=== PATIENT | male | born 1975 | race Caucasian/White ===

== ENCOUNTER 2021-02-16 09:34 | Emergency (ER) | payer OTHER, SELFPAY ==
[2021-02-16 09:40] VITALS: BP 145/85; PULSE 54; RESP 16; O2SAT 97; BMI 36.9
--- NOTE | 2021-02-16 09:52 | ED.GENADULT ---
HPI - General Adult General Chief complaint: General Medical Stated complaint: rectal bleeding Time Seen by Provider: 02/16/21 09:52 Source: patient Mode of arrival: ambulatory Limitations: no limitations History of Present Illness HPI narrative: patient had a history of hemorrhoids and was having blood when he has a bowel and cleans himself. Patient has irritation to the rectal area. Onset (ago): week(s) Severity: mild Quality: burning Pain Consistency: intermittent Exacerbating factors: other (bowel movement) Associated symptoms: denies other symptoms Related Data Previous Rx's Medication Instructions Recorded clotrimazole 1 % topical cream 1 appl TOPICAL BID 28 Days #90 g 02/16/21 (Lotrimin AF (clotrimazole)) Allergies Allergy/AdvReac Type Severity Reaction Status Date / Time No Known Allergies Allergy Unverified 12/18/19 15:41 Review of Systems Constitutional: Constitutional: Reports no additional constitutional complaints Eyes: Eyes: Reports no additional eye complaints ENT: Denies dizziness Cardiovascular: Cardiovascular: Reports no additional cardiovascular complaints Respiratory: Respiratory: Reports as per HPI Gastrointestinal: Gastrointestinal: Reports no additional gastrointestinal complaints Musculoskeletal: Musculoskeletal: Reports no additional musculoskeletal complaints Integumentary/Breasts: Skin/Breast: Denies rash Neurologic: Reports system reviewed and no additional complaints, except as documented, Denies dizziness and Denies Sensory deficit (Neuro) Psychiatric: Psychiatric: Denies anxiety [facility] Past Medical History Medical History High cholesterol HTN (hypertension) Social History Social History Advance Directives: No Physical Exam Vital Signs: Vital Signs: Last Vital Signs Pulse 54 02/16/21 09:40 Resp 16 02/16/21 09:40 BP 145/85 H 02/16/21 09:40 Pulse Ox 97 02/16/21 09:40 Body Mass Index 36.9 Const: General: healthy appearing Nutritional Appearance: average body habitus Orientation/consciousness: oriented to person and patient oriented x3 Limitations: no limitations HENMT: Head: Yes normal to inspection Ears: external ears normal General nose exam: Normal external nose present Mouth: Normal oral and palatal mucosa present and oropharynx normal Throat: Yes posterior oropharynx normal Eyes: General: appearance normal, both eyes and all related structures Neck: Other: supple Neck: Yes normal visual inspection Chest: Chest palpation & inspection: normal inspection of the chest Resp: Auscultation: clear to auscultation bilaterally Cardio: Jugular venous distension: no JVD Rate: regular rate Rhythm: regular rhythm Heart sounds: S1 normal heart sound present and S2 normal heart sound present GI: Inspection: Yes normal to inspection Palpation (GI): Soft to palpation, nontender and No hepatosplenomegaly present Auscultation: normal bowel sounds : Other: perirectal area with irritation consistent with fungus, no internal or external hemorrhoid. There is erythema and excoriation. Skin: General skin exam: no rashes or lesions noted Neuro: General: oriented to person and patient oriented x3 Cranial nerves: Yes CN's II-XII intact bilaterally Motor exam (neuro): 5/5 motor strength present throughout Sensory Exam: No Sensory deficit (Neuro) Extrem: General: Yes normal to inspection Psych: Appearance: grossly normal Discharge Plan Discharge Clinical Impression: Candidiasis of anus Patient Disposition: Home, Self-Care Instructions: Skin Yeast Infection (ED) Prescriptions: New clotrimazole [Lotrimin AF (clotrimazole)] 1 % cream 1 appl topical BID 28 Days Qty: 90 RF: 0 Referrals: David Clay MD [Primary Care Provider] - 1 week
[2021-02-16 10:12] LABS: Glucose, Whole Blood 95 mg/dL (60-115)
== END 2021-02-16 10:18 | disposition home or self-care (01) ==
PROVIDERS: Emergency Provider Emergency Medicine; PCP Internal Medicine
DX: B37.2 Candidiasis of skin and nail (principal); I10 Essential (primary) hypertension
CPT/HCPCS: 82947; 99283

== ENCOUNTER 2024-06-17 09:19 | Outpatient (AMB) | payer OTHER, SELFPAY ==
--- NOTE | 2024-06-17 09:26 | A.OFFVIS_ITS ---
Vital Signs 06/17/24 09:29 Height 5 ft 8 in Weight 250 lb BMI 38.0 BP 148/82 H Blood Pressure Location Rt brachial Position Sitting Pulse 72 Pulse Source Pulse Oximeter Pulse Oximetry (%) 98 Oxygen Delivery Method Room Air Intake Visit Reasons: Obstructive sleep apnea Hot Die Picker Required: No Allergies No Known Allergies Allergy (Unverified 06/17/24 09:27) Medication List - Last Reconciled 06/17/24 by Kylah Dominguez, SERVICE DESK ASSOCIATE albuterol sulfate 90 mcg/actuation (Ventolin HFA) inhalation clotrimazole 1% (Lotrimin AF (clotrimazole)) 1 appl topical BID 4 weeks fluticasone propionate 50 mcg/actuation intranasal lisinopril mg PO DAILY loratadine mg PO DAILY simvastatin mg PO DAILY HPI HPI Obstructive sleep apnea: Details: Jaycob is a pleasant 49 year old male, never smoker, with underlying ROSETTE, asthma, seasonal allergies, HTN, and HLD. He was referred by PCP for pulmonary evaluation for ROSETTE. He reports prior sleep study in 2018 which revealed ROSETTE, unknown severity. Unfortunately, never was contacted about results until recently therefore was never started on CPAP therapy. He continues with witnessed apneas, paroxsymal nocturnal dyspnea, loud snoring and daytime fatigue. EPWORTH score 13. He reports mother and sister with h/o ROSETTE. He also reports h/o asthma which is controlled with albuterol MDI, requiring use rarely. Today he denies any respiratory symptoms. COUNT INCLUDES THE [facility] Medical History High cholesterol HTN (hypertension) Review of Systems Const Denies chills, Denies excessive sweating, Denies fever(s), Denies headache(s) and Denies night sweats Eyes Denies dry eyes, Denies irritation and Denies itchy eyes ENT Reports Normal hearing present, Denies headache(s), Denies nasal congestion, Denies nasal discharge, Denies post nasal drip and Denies sore throat Card Denies chest pain, Denies chest pain at rest, Denies chest pain with activity, Denies claudication, Denies leg edema, Denies dyspnea, Denies dyspnea on exertion, Denies orthopnea and Reports paroxysmal nocturnal dyspnea Resp Denies chest congestion, Denies cough, Denies excessive phlegm production, Denies pain on inspiration, Denies pain with cough, Denies dyspnea, Denies dyspnea on exertion, Denies stridor and Denies wheezing Musc Denies myalgias Neuro Reports Normal hearing present and Denies headache(s) Endo Denies excessive sweating Dio/Lymph Denies lymphadenopathy Aller/Immun Denies itchy eyes, Denies seasonal rhinorrhea and Denies wheezing Physical Exam Vital Signs: Last Vital Signs Pulse 72 06/17/24 09:29 BP 148/82 H 06/17/24 09:29 Pulse Ox 98 06/17/24 09:29 Oxygen Delivery Method Room Air 06/17/24 09:29 BMI result Body Mass Index 38.0 Const General: cooperative, healthy appearing, comfortable, no acute distress, well developed and alert Nutritional Appearance: obese Orientation/consciousness: patient oriented x3 Limitations: no limitations HEENT Head: Yes normal to inspection, Yes normocephalic and Yes atraumatic Ears: hearing grossly normal bilaterally and external ears normal Eyes General: appearance normal, both eyes and all related structures Eyelids: Yes eyelids normal Sclerae: sclerae normal EOM: EOMs intact bilaterally Neck Neck: Yes normal visual inspection and Yes no lymphadenopathy Lymphatic: no lymphadenopathy noted Chest Chest palpation & inspection: normal inspection of the chest Resp Effort & Inspection: normal respiratory effort, able to speak in complete sentences, no audible wheezes, no cough, no stridor, not tachypneic, no tripod positioning and no use of accessory muscles Auscultation: clear to auscultation bilaterally Cardio Jugular venous distension: no JVD Rate: regular rate Rhythm: regular rhythm Skin Other: warm, dry General skin exam: no rashes or lesions noted Neuro General: patient oriented x3 Cranial nerves: Yes Normal hearing present Cognition (Neuro): normal cognition Gait exam (Neuro): Normal gait present Extrem General: Yes normal to inspection, Yes capillary refill normal, Yes no clubbing, cyanosis or edema and Yes no pedal edema Psych Appearance: grossly normal and well kempt Speech and movement: Normal speech and movement present and Clear speech present Affect: normal affect Attitude: cooperative Thought process: Normal thought process present Thought content: Normal thought content present Insight: Good insight present (Psych) Judgement: Good judgement present (Psych) Assessment & Plan Assessment & Plan (1) Witnessed episode of apnea: Code(s): R06.81 - Apnea, not elsewhere classified Category: Medical (2) Daytime somnolence: Code(s): R40.0 - Somnolence Category: Medical (3) Asthma: Code(s): J45.909 - Unspecified asthma, uncomplicated Category: Medical Plan Jaycob presents for pulmonary evaluation for symptoms suggestive of ROSETTE. Will send for home sleep study to further evaluate. At this time, he reports respiratory symptoms are well controlled. He is aware to call if respiratory symptoms change with the Spring approaching. All questions were answered and patient is agreement. Will follow up to review results or sooner if needed. Orders: Orders RT home sleep study Today R06.81 - Apnea, not elsewhere classified, R40.0 - Somnolence Coding Level of Care Code New Pt Level 3 (74894) Diagnoses Witnessed episode of apnea R06.81 Daytime somnolence R40.0 Asthma J45.909
[2024-06-17 09:29] VITALS: BP 148/82; PULSE 72; O2SAT 98; BMI 38.0
--- OUTSIDE RECORDS SUMMARY | 2024-06-17 10:05 | XMS_ITS | Clinical Summary ---
Author Organization [facility] Address [address] [place] [phone] Phone Care Team Providers Care Coverstitch Elastic Attacher Name Role Phone David Clay MD Primary Care Provider [phone] Allergies No known active allergies Medications ketotifen fumarate (ZADITOR) 0.035 % ophthalmic solution PLACE 1 DROP IN BOTH EYES EVERY 12 HOURS 3 Active fluticasone propionate (FLONASE) 50 mcg/actuation nasal spray Administer 2 sprays into each nostril 1 (one) time each day. 4 Active ketoconazole (NIZORAL) 2 % cream APPLY CREAM TO THE AFFECTED AREAS OF THE BOTTOM AND TOP OF FEET TWICE DAILY 4 Active loratadine (CLARITIN) 10 mg tablet Take 1 tablet (10 mg total) by mouth 1 (one) time each day. 90 tablet 5 Active lisinopriL (PRINIVIL,ZESTR IL) 20 mg tablet Take 1 tablet (20 mg total) by mouth 1 (one) time each day. 90 tablet 5 Active simvastatin (ZOCOR) 80 mg tablet Take 1 tablet (80 mg total) by mouth at bedtime. 90 tablet 1 5 Active albuterol HFA (Ventolin HFA) 90 mcg/actuation inhaler Inhale 2 puffs by mouth every 4 (four) hours if needed for wheezing or shortness of breath. 6.7 g 1 5 Active albuterol 2.5 mg /3 mL (0.083 %) nebulizer solution Take 3 mL (2.5 mg total) by nebulization 4 (four) times a day if needed for wheezing or shortness of breath. 75 mL Active Active Problems Problem Noted Date Diagnosed Date Type 2 diabetes mellitus wit hout complication, without long-term current use of insulin 05/19/2024 Helicobacter pylori gastritis 07/12/2023 Hepatic steatosis 07/11/2023 Seasonal allergies 07/11/2023 Bilateral inguinal hernia without obstruction or gangrene 01/22/2019 Prediabetes 10/14/2018 Obstructive sleep apnea 09/04/2017 Overview (02/19/2024): [facility] Home Polysomnogram: Date 08/29/2017; AHI 33, Unclassified apneas 0; Obstructive apneas 81; Central apneas 1; Mixed apneas 0; hypopneas 128; average oxygen saturation 95% (lowest 81% without saturations <88% for 5% or more of study) - Obstructive Sleep Apnea - severe; mostly hypopneas and obstructive apneas; without sleep related hypoventilation by 2018 home polysomnogram. Benign prostatic hyperplasia with lower urinary tract symptoms 04/17/2017 Hydrocele of testis 12/20/2016 Testicular cyst 12/20/2016 Varicocele 12/20/2016 Mixed hyperlipidemia 06/06/2016 Microscopic hematuria 01/30/2014 Impaired fasting glucose 01/27/2014 Overview (02/19/2024): 2010 and 2011 Severe obesity 01/27/2014 Overview (02/19/2024): BMI 35.86 on 05/05/13 Asthma 03/19/2006 Essential hypertension, benign 03/19/2006 Encounters Date Type Department Care Team Description 05/07/2024 10:00 AM EST Office Visit Adult Medicine [address] [phone] Fadumo Johnson PA Mild intermittent asthma without complication (Primary Dx); Essential hypertension, benign; Mixed hyperlipidemia; Prediabetes; Seasonal allergies; Obstructive sleep apnea; Throat pain; Throat tightness from Last 3 Months Immunizations Name Administration Dates Next Due Influenza trivalent, 0.5mL, preservative free (Fluarix; FluLaval; Fluzone) ages 6mo and older (Afluria) 3 years and older 01/30/2014,12/19/2010 Pneumococcal, Unspecified 12/09/2010 Td Tetanus diptheria (Tdvax) 7yo and older 12/05,07/31/2002 Td, Unspecified 07/31/2002 Tdap Tetanus diptheria acell ular pertussis (Boostrix; Adacel) 7yo and older 01/30/2014 Surgical History Surgery Date Site/Laterality Comments COLONOSCOPY 04/08/2015 PROCEDURE: HISTORICAL COLONOSCOPY; COMMENT: Colon polyps x 2, inflammatory polyp. Repeat in 10 years Medical History Medical History Date Comments Essential hypertension, benign 03/19/2006 D X:Essential hypertension, benign Unspecified asthma(493.90) 03/19/2006 DX:Un specified asthma(493.90) Severe obesity (CMS/HCC) 01/27/2014 DX:Anju re obesity ([facility]); COMMENT: BMI 35.86 on 05/05/13 Hyperlipidemia 03/19/2006 DX:Hyperlipidemi a Impaired fasting glucose 01/27/2014 DX:Impa ired fasting glucose; COMMENT: 2010 and 2011 Family hx colonic polyps 09/11/2014 DX:Fami ly hx colonic polyps Family History Medical History Relation Name Comments Diabetes Father hyperlipidemia, htn, kidney cancer Diabetes Mother Stroke Paternal Grandmother Relation Name Status Comments Brother 1 Alive Brother 2 Alive Daughter 1 Alive Daughter 2 Alive Daughter 3 Alive Father Alive diabetes Mother Alive hypertension, h ypercholesterolemia Paternal Grandmother Sister 1 Alive Sister 2 Alive Son Alive Social History Tobacco Use Types Packs/Day Years Used Date Smoking Tobacco: Never Smokeless Tobacco: Never Tobacco Cessation:Counseling Given: Not Answered Alcohol Use Standard Drinks/Week Comments Yes 0 (1 standard drink = 0.6 oz pur e alcohol) Sex and Gender Information Value Date Recorded Sex Assigned at Not on file Legal Sex Male 9:50 AM EST Gender Identity Not on file Sexual Orientation Not on file Obstetrics History Last Filed Vital Signs Vital Sign Reading Time Taken Comments Blood Pressure 132/70 05/07/2024 10:09 AM EST Pulse 78 05/07/2024 10:09 AM EST Temperature 36.1 ??C (97 ??F) 05/07/2024 10:09 AM EST Respiratory Rate - - Oxygen Saturation 96% 05/07/2024 10:09 AM EST Inhaled Oxygen Concentration - - Weight 114 kg (251 lb 11.2 oz) 05/07/2024 10:09 AM EST Height 172.7 cm (5' 7.99 ) 05/07/2024 10:09 AM Kamaljit Body Mass Index 38.28 05/07/2024 10:09 AM EST Plan of Treatment Upcoming Encounters Date Type Department Care Team (Late st Contact Info) Description 11/17/2024 9:45 AM EDT Office Visit Adult Medicine [facility] [address] [place] [phone] David Clay MD [address] [place] [phone] Health Maintenance Due Date Last Done Comments Diabetes: Annual Foot Exam 1983 Diabetes: Annual Retina Eye Exam 1983 Hepatitis A Vaccines (1 of 2 - Risk 2-dose series) 1992 Hepatitis B Vaccines (1 of 3 - 19+ 3-dose series) 1992 Pneumococcal Vaccine: 50+ Years (1 of 2 - PCV) 1992 12/09/2010 Pneumococcal Vaccine: Pediatrics (0 to 5 Years) and At-Risk Patients (6 to 64 Years) (2 of 2 - PPSV23) 02/13/2011 12/19/2010, 12/09/2010 Depression Screening 03/11/2022 HIV Screening 03/11/2022 Social Influencers of Health Screening 03/11/2022 Zoster Vaccines (1 of 2) 2023 COVID-19 Vaccine (3 - 2023- season) 2023 09/08/2020, 08/18/2020 Influenza Vaccine (#1) 2023 01/30/2014, 2010 DTaP,Tdap,and Td Vaccines (5 - Td or Tdap) 01/31/2024 01/30/2014, 12/05/2006, 07/31/2002, Additional history exists Diabetes: Annual Urine Albumin-Creatinine Ratio (uACR) 05/20/2024 01/28/2019 Diabetes: Blood Sugar Control Test (HGBA1C) 11/12/2024 2024, 07/12/2023 Diabetes: Annual GFR (Glomerular Filtration Rate) 2025 2024, 07/12/2023 Hypertension/CHF/CAD Annual BMP Blood Test 2025 2024, 07/12/2023 Colorectal Cancer Screening: Colonoscopy 11/28/2026 11/28/2021 Cholesterol Screening (Lipid Panel) 2029 2024, 07/12/2023 Hepatitis C Screening Completed 07/12/2023 HIB Vaccines Aged Out No longer eligi ble based on patient's age to complete this topic HPV Vaccines Aged Out No longer eligi ble based on patient's age to complete this topic IPV Vaccines Aged Out No longer eligi ble based on patient's age to complete this topic MMR Vaccines Aged Out No longer eligi ble based on patient's age to complete this topic Meningococcal ACWY Vaccine Aged Out N o longer eligible based on patient's age to complete this topic Meningococcal B Vacine Aged Out No lo nger eligible based on patient's age to complete this topic RSV Immunization Patients Under 20 months Aged Out No longer eligible based on patient's age to complete this topic Varicella Vaccines Aged Out No longer eligible based on patient's age to complete this topic Procedures Procedure Name Priority Date/Time Associated Diagnosis Comments BASIC METABOLIC PANEL Routine 2024 7:39 AM EST Essential hypertension, benign LIPID PANEL WITH REFLEX TO DIRECT LDL Routine 2024 7:39 AM EST Mixed hyperlipidemia HEMOGLOBIN A1C Routine 2024 7:39 AM EST Prediabetes HEPATITIS C SCREENING Routine 07/12/2023 COLONOSCOPY Routine 11/28/2021 URINE ALBUMIN CREATININE RATIO Routine 01/28/2019 from Last 3 Months or Most Recently Relevant to Health Maintenance Results * (ABNORMAL) Lipid panel with reflex to direct LDL (2024 7:39 AM EST) [facility] Signature Cholesterol 183 0 - 200 mg/dL LAB CHEMISTRY METHOD 2024 10:23 AM [facility] Triglycerides 163(H) 0 - 150 mg/dL LAB CHEMISTRY METHOD 2024 10:23 AM [facility] HDL 49 >=40 mg/dL LAB CHEMISTRY METHOD 2024 10:23 AM [facility] LDL Calculated 101(H) 0 - 100 mg/dL LAB CHEMISTRY METHOD 2024 10:23 AM EST [facility] VLDL Cholesterol Marlon 32.6 mg/dL LAB CHEMISTRY METHOD 2024 10:23 AM [facility] Non HDL Chol. (LDL+VLDL) 134 <145 mg/dL LAB CHEMISTRY METHOD 2024 10:23 AM [facility] Chol/HDL Ratio 3.7 0.0 - 4.4 LAB CHEMISTRY METHOD 2024 10:23 AM [facility] Blood Venous blood specimen / Unknown Venipuncture / Unknown 2024 7:39 AM EST 2024 7:39 AM EST Fadumo MENJIVAR LAB BLOOD ORDERABLES Fi nal Result [facility] [address] [place] [address], * (ABNORMAL) Hemoglobin A1c (2024 7:39 AM EST) Hemoglobin A1C 6.5(H) <6.5 % LAB CHEMISTRY METHOD 2024 12:35 PM [facility] Mean Bld Glu Estim. 140 mg/dL LAB CHEMISTRY METHOD 2024 12:35 PM [facility] Blood Venous blood specimen / Unknown Venipuncture / Unknown 2024 7:39 AM EST 2024 7:39 AM EST Fadumo MENJIVAR LAB BLOOD ORDERABLES Fi nal Result [facility] [address] [place] [address], [place] [phone] * (ABNORMAL) Basic metabolic panel (2024 7:39 AM EST) Sodium 138 133 - 145 mmol/L LAB CHEMISTRY METHOD 2024 10:32 AM [facility] Potassium 4.6 3.5 - 5.5 mmol/L LAB CHEMISTRY METHOD 2024 10:32 AM [facility] Chloride 106 96 - 110 mmol/L LAB CHEMISTRY METHOD 2024 10:32 AM [facility] CO2 30 21 - 32 mmol/L LAB CHEMISTRY METHOD 2024 10:32 AM [facility] Anion Gap 2(L) 3 - 11 LAB CHEMISTRY METHOD 2024 10:32 AM [facility] Glucose 114(H) 70 - 100 mg/dL LAB CHEMISTRY METHOD 2024 10:32 AM [facility] BUN 18 5 - 25 mg/dL LAB CHEMISTRY METHOD 2024 10:32 AM [facility] Creatinine 1.33(H) 0.70 - 1.30 mg/dL LAB CHEMISTRY METHOD 2024 10:32 AM [facility] eGFR 65 >=60 mL/min/1. 73m2 LAB CHEMISTRY METHOD 2024 10:32 AM [facility] Comment:Calculation based on the??Chronic Kidney Disease Epidemiology Collaboration (CKD-EPI) equation refit??without adjustment for race. BUN/Creatinine Ratio 13.5 LAB CHEMISTRY METHOD 2024 10:32 AM EST [facility] Calcium 9.9 8.5 - 10.5 mg/dL LAB CHEMISTRY METHOD 2024 10:32 AM EST [facility] Blood Venous blood specimen / Unknown Venipuncture / Unknown 2024 7:39 AM EST 2024 7:39 AM EST Fadumo MENJIVAR LAB BLOOD ORDERABLES Fi nal Result [facility] [address] [place] [address], * Hepatitis C Screening (07/12/2023) Pathologist [facility] Hepatitis C Screening abstracted Historical Provider HEALTH MAINTENANCE Final Result * Colonoscopy (11/28/2021) Pathologist [facility] Colonoscopy no interpretation , abstracted Anatomical Region Laterality Modality Other Historical Provider HEALTH MAINTENANCE Final Result * Urine Albumin Creatinine Ratio (01/28/2019) Pathologist [facility] Urine Albumin Creatinine Ratio abstracted Historical Provider HEALTH MAINTENANCE Final Result from Last 3 Months or Most Recently Relevant to Health Maintenance Insurance [facility] [facility] Care Teams Coverstitch Elastic Attacher Relationship Specialty Start Date End Date David Clay MD [address] [place] [id number] PCP - General Internal Medicine 01/13/15
== END 2024-06-17 09:51 | disposition home or self-care (01) ==
LOC: HO.HPSW 09:19
PROVIDERS: PCP Internal Medicine; Referring Provider Internal Medicine; Visit Provider Nurse Practitioner Family
DX: R06.81 Apnea, not elsewhere classified (principal); R40.0 Somnolence; J45.909 Unspecified asthma, uncomplicated
CPT/HCPCS: 99203

== ENCOUNTER → 2024-06-17 09:19 | Outpatient (BNVA) | payer OTHER, SELFPAY | PROVIDERS: PCP Internal Medicine; Referring Provider Internal Medicine; Visit Provider Nurse Practitioner Family | DX: G47.33 Obstructive sleep apnea (adult) (pediatric) (principal); J45.909 Unspecified asthma, uncomplicated; R40.0 Somnolence | CPT/HCPCS: 99202 ==

== ENCOUNTER → 2024-08-14 14:03 | Outpatient (REF) | payer OTHER, SELFPAY ==
--- OUTSIDE RECORDS SUMMARY | 2024-08-14 14:46 | XMS_ITS | Encounter Summary ---
Author Organization [facility] Address [address] [place] [address] Care Team Providers Care Skelp Processor Name Role Phone David Clay MD Primary Care Provider [phone] Reason for Visit * Reason Comments E-prescribe Rx Request Encounter Details Date Type Department Care Team Description 08/16/2023 Refill [facility] Medical [facility] [address] [place] [phone] Yifan Haider DPM E-prescribe Rx Request Social History Tobacco Use Types Packs/Day Years Used Date Smoking Tobacco: Never Smokeless Tobacco: Never Alcohol Use Standard Drinks/Week Comments Yes 0 (1 standard drink = 0.6 oz pur e alcohol) 7 drinks per week Sex Assigned at Date Recorded Not on file documented as of this encounter Plan of Treatment Not on file documented as of this encounter Visit Diagnoses Not on filedocumented in this encounter Care Teams Skelp Processor Relationship Specialty Start Date End Date David Clay MD [address] [place] [address] [phone] PCP - General Internal Medicine 01/13/15 documented as of this encounter
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
--- OUTSIDE RECORDS SUMMARY | 2024-08-14 14:46 | XMS_ITS | Encounter Summary ---
Author Organization [facility] Address [address] [place] [address] Care Team Providers Care Construction Plumber Name Role Phone David [place] MD Primary Care Provider [phone] Encounter Details Date Type Department Care Team Description 10/24/2017 Telephone Adult Medicine [address] [address] Venu Varghese MD Social History Tobacco Use Types Packs/Day Years Used Date Smoking Tobacco: Never Smokeless Tobacco: Never Alcohol Use Standard Drinks/Week Comments Yes 0 (1 standard drink = 0.6 oz pur e alcohol) 7 drinks per week Sex Assigned at Date Recorded Not on file documented as of this encounter Miscellaneous Notes * Telephone Encounter - Sera Hensley C.M.A. - 10/24/2017 12:56 PM EDT Notes requested. * Telephone Encounter - Venu Varghese MD - 10/24/2017 8:43 AM EDT Please nupur urology records from Dr. Garcia. documented in this encounter Plan of Treatment Not on file documented as of this encounter Visit Diagnoses Not on filedocumented in this encounter Care Teams Construction Plumber Relationship Specialty Start Date End Date David [place] MD [address] [place] [address] PCP - General Internal Medicine 01/13/15 documented as of this encounter
--- OUTSIDE RECORDS SUMMARY | 2024-08-14 14:46 | XMS_ITS | Encounter Summary ---
Author Organization [facility] Address [address] [place] [address] Care Team Providers Care Skein Washer Name Role Phone David [place] MD Primary Care Provider [phone] Encounter Details Date Type Department Care Team Description 11/04/2020 Head Girls Golf Coach Report Medical Records [address] [place] [address] Rosie Sheppard Social History Tobacco Use Types Packs/Day Years [...] on filedocumented in this encounter Care Teams Skein Washer Relationship Specialty Start Date End Date David [place] MD [address] [place] [address] PCP - General Internal Medicine 01/13/15 documented as of this encounter
--- OUTSIDE RECORDS SUMMARY | 2024-08-14 14:46 | XMS_ITS | Encounter Summary ---
Author Organization [facility] Address [address] [place] [address] Care Team Providers Care Shop Estimator Name Role Phone David Clay MD Primary Care Provider [phone] Reason for Visit * Reason Onset Date Comments Medication 11/14/2021 Encounter Details Date Type Department Care Team Description 11/14/2021 Refill Gastroenterology - [address] [phone] Shawna Doe MD [address] [place] [address] Medication Social History Tobacco Use Types Packs/Day Years [...] on filedocumented in this encounter Care Teams Shop Estimator Relationship Specialty Start Date End Date David Clay MD [address] [place] [address] PCP - General Internal Medicine 01/13/15 documented as of this encounter
--- OUTSIDE RECORDS SUMMARY | 2024-08-14 14:46 | XMS_ITS | Encounter Summary ---
Author Organization [facility] Address [address] [place] [address] Care Team Providers Care Commercial Sales Director Name Role Phone David [place] MD Primary Care Provider [phone] Reason for Visit * Reason Comments E-prescribe Rx Request Encounter Details Date Type Department Care Team Description 02/14/2021 Refill Gastroenterology - [address] [phone] Jerel To PA-C E-prescribe Rx Request Social History Tobacco Use Types Packs/Day Years Used Date Smoking Tobacco: Never Smokeless Tobacco: Never Alcohol Use Standard Drinks/Week Comments Yes 0 (1 standard drink = 0.6 oz pur e alcohol) 7 drinks per week Sex Assigned at Date Recorded Not on file COVID-19 Exposure Response Date Recorded In the last month, have you been in contact with someone who was confirmed or suspected to have Coronavirus / COVID-19? No / Unsure 01/27/2021 10:35 AM EDT documented as of this encounter Plan of Treatment Not on file documented as of this encounter Visit Diagnoses Not on filedocumented in this encounter Care Teams Commercial Sales Director Relationship Specialty Start Date End Date David [place] MD [address] [place] [address] PCP - General Internal Medicine 01/13/15 documented as of this encounter
--- OUTSIDE RECORDS SUMMARY | 2024-08-14 14:46 | XMS_ITS | Encounter Summary ---
Author Organization [facility] Address [address] [place] [address] Care Team Providers Care Geosciences Associate Professor Name Role Phone David [place] MD Primary Care Provider [phone] Reason for Visit * Reason Onset Date Comments Medication 04/12/2021 Encounter Details Date Type Department Care Team Description 04/12/2021 Refill Gastroenterology - [place] [address] [phone] Clinton Cortes PA-C [address] [address] Medication Social History Tobacco Use Types Packs/Day [...] on filedocumented in this encounter Care Teams Geosciences Associate Professor Relationship Specialty Start Date End Date David Clay MD [address] [place] [phone] PCP - General Internal Medicine 01/13/15 documented as of this encounter
--- OUTSIDE RECORDS SUMMARY | 2024-08-14 14:46 | XMS_ITS | Encounter Summary ---
Author Organization [facility] Address [address] [place] [address] Care Team Providers Care Carbon Sequestration Plant Engineer Name Role Phone David Clay MD Primary Care Provider [phone] Encounter Details Date Type Department Care Team Description 08/05/2020 Coroner Technician Report Medical Records [address] [place] [address] Rosie Sheppard Social History Tobacco Use Types [...] on filedocumented in this encounter Care Teams Carbon Sequestration Plant Engineer Relationship Specialty Start Date End Date David Clay MD [address] [place] [address] PCP - General Internal Medicine 01/13/15 documented as of this encounter
--- OUTSIDE RECORDS SUMMARY | 2024-08-14 14:46 | XMS_ITS | Encounter Summary ---
Author Organization [facility] Address [address] [place] [address] Care Team Providers Care Delivery Sales Worker Name Role Phone David Clay MD Primary Care Provider [phone] Encounter Details Date Type Department Care Team Description 10/14/2018 Telephone Adult Medicine [address] [phone] David Clay MD [address] [place] [address] [phone] Social History Tobacco Use Types Packs/Day Years [...] on filedocumented in this encounter Care Teams Delivery Sales Worker Relationship Specialty Start Date End Date David Clay MD [address] [place] [address] PCP - General Internal Medicine 01/13/15 documented as of this encounter
--- OUTSIDE RECORDS SUMMARY | 2024-08-14 14:46 | XMS_ITS | Encounter Summary ---
Author Organization [facility] Address [address] [place] [address] Care Team Providers Care Appliance Assembler Name Role Phone David Clay MD Primary Care Provider [phone] Reason for Visit * Reason Onset Date Comments medication problems 08/06/2018 Encounter Details Date Type Department Care Team Description 08/06/2018 Telephone Adult Medicine [address] [phone] David Clay MD [address] [place] [address] [phone] medication problems Social History Tobacco Use Types Packs/Day Years Used Date Smoking Tobacco: Never Smokeless Tobacco: Never Alcohol Use Standard Drinks/Week Comments Yes 0 (1 standard drink = 0.6 oz pur e alcohol) 7 drinks per week Sex Assigned at Date Recorded Not on file documented as of this encounter Miscellaneous Notes * Telephone Encounter - Sophie Cali - 08/19/2018 1:13 PM EDT Patient is calling to see the status on * Telephone Encounter - Jennie Knott PA-C - 08/06/2018 1:09 PM EDT Prilosec has been discontinued and patient was started on Zantac. * Telephone Encounter - Alexandria Torres M.A. - 08/06/2018 9:26 AM EDT Pharmacy advising possible drug interaction between Omeprazole and Cardura please advise * Telephone Encounter - Yeni Sawyer - 08/06/2018 9:24 AM EDT Who is calling? Spouse: Name: Ramya Name of the medication omeprazole (PRILOSEC OTC) 20 MG tablet and doxazosin (CARDURA) 1 MG tablet What is the specific problem or interaction? Per pharmacist drug interaction between 2 medications If the patient is having a problem with taking the med - how long has the problem been going on? N/A documented in this encounter Plan of Treatment Not on file documented as of this encounter Visit Diagnoses Not on filedocumented in this encounter Care Teams Appliance Assembler Relationship Specialty Start Date End Date David Clay MD [address] [place] [address] PCP - General Internal Medicine 01/13/15 documented as of this encounter
--- OUTSIDE RECORDS SUMMARY | 2024-08-14 14:46 | XMS_ITS | Clinical Summary ---
Author Organization [facility] Address [address] [place] [phone] Phone Care Team Providers Care Promotional Marketing Analyst Name Role Phone David Clay MD Primary Care Provider [phone] Allergies No known active allergies Medications ketotifen [...] complication, without long-term current use of insulin ([facility] V24, [facility] V28) 05/19/2024 Helicobacter pylori gastritis 07/12/2023 Hepatic steatosis 07/11/2023 Seasonal allergies 07/11/2023 Bilateral inguinal hernia without obstruction or gangrene 01/22/2019 Prediabetes 10/14/2018 Obstructive sleep apnea 09/04/2017 Overview (02/19/2024): [facility] Home Polysomnogram: Date 08/29/2017; AHI 33, Unclassified [...] Overview (02/19/2024): 2010 and 2011 Severe obesity ([facility] V24, [facility] V28) 2013 Overview (02/19/2024): BMI 35.86 on 05/05/13 Asthma 03/19/2006 Essential hypertension, benign 03/19/2006 Immunizations Name Administration Dates Next Due Influenza [...] asthma(493.90) 03/19/2006 DX:Un specified asthma(493.90) Severe obesity (CMS/HCC V24, CMS/HCC V28) 01/27/2014 DX:Severe obesity (HCC); COM MENT: BMI 35.86 on 05/05/13 Hyperlipidemia 03/19/2006 DX:Hyperlipidemi [...] cm (5' 7.99 ) 05/07/2024 10:[address] Body Mass Index 38.28 05/07/2024 10:09 AM EST Plan of Treatment Upcoming Encounters Date Type Department Care Team (Late st Contact Info) Description 11/17/2024 9:45 AM EDT Office Visit Adult Medicine [facility] [address] [place] [phone] David Clay MD [address] [place] [phone] Health Maintenance Due Date Last Done Comments Diabetes: Annual Foot Exam 1983 Diabetes: Annual Retina Eye Exam 1983 Hepatitis B Vaccines (1 of 3 - [...] Vaccines (1 of 2) 2023 COVID-19 Vaccine ( season) 2023 09/08/2020, 08/18/2020 DTaP,Tdap,and Td Vaccines (5 - Td or Tdap) 01/31/2024 01/30/2014, 12/05/2006, 07/31/2002, Additional history exists Diabetes: Annual Urine Albumin-Creatinine Ratio (uACR) 05/20/2024 01/28/2019 Diabetes: Blood Sugar Control Test (HGBA1C) 11/12/2024 2024, 07/12/2023 Influenza Vaccine (Season Ended) 2024 01/30/2014, 12/19/2010 Diabetes: Annual GFR (Glomerular Filtration Rate) 2025 [...] on patient's age to complete this topic Hepatitis A Vaccines Aged Out No long er eligible based on patient's age to complete this topic IPV Vaccines Aged Out No longer eligi ble based on patient's age to complete this topic MMR Vaccines Aged Out No longer eligi ble based on patient's age to complete this topic Meningococcal ACWY Vaccine Aged Out N o longer eligible based on patient's age to complete this topic Meningococcal B Vaccine Aged Out No l onger eligible based on patient's age to complete this topic RSV Immunization Patients Under 20 months Aged Out No longer eligible based on patient's age to complete this topic Varicella Vaccines Aged Out No longer eligible based on patient's age to complete this topic Procedures Procedure Name Priority Date/Time Associated Diagnosis Comments BASIC METABOLIC PANEL Routine 2024 7:39 AM EST Essential hypertension, benign HEMOGLOBIN A1C Routine 2024 7:39 AM EST Prediabetes LIPID PANEL WITH REFLEX TO DIRECT LDL Routine 2024 7:39 AM EST Mixed hyperlipidemia HEPATITIS C SCREENING Routine 07/12/2023 COLONOSCOPY Routine 11/28/2021 URINE ALBUMIN CREATININE RATIO Routine 01/28/2019 from Last 3 Months or Most Recently Relevant to Health Maintenance Results * (ABNORMAL) Lipid panel with reflex to direct LDL (2024 7:39 AM EST) Cholesterol 183 0 - 200 mg/dL LAB CHEMISTRY METHOD 2024 10:23 AM EST [facility] Triglycerides 163(H) 0 - 150 mg/dL LAB CHEMISTRY METHOD 2024 10:23 AM EST [facility] HDL 49 >=40 mg/dL LAB CHEMISTRY METHOD 2024 10:23 AM EST [facility] LDL Calculated 101(H) 0 - 100 mg/dL LAB CHEMISTRY METHOD 2024 10:[address] [facility] VLDL Cholesterol Marlon 32.6 mg/dL LAB CHEMISTRY METHOD 2024 10:[address] [facility] Non HDL Chol. (LDL+VLDL) 134 <145 mg/dL LAB CHEMISTRY METHOD 2024 10:23 AM EST [facility] Chol/HDL Ratio 3.7 0.0 - 4.4 LAB CHEMISTRY METHOD 2024 10:[address] [facility] Blood Venous blood specimen / Unknown Venipuncture / Unknown 2024 7:39 AM EST 2024 7:39 AM EST [facility] LAB BLOOD ORDERABLES Fi nal Result Performing Organization Address City/[facility]/ZIP Co de Phone Number [facility] [address] [place] [address], * (ABNORMAL) Hemoglobin A1c (2024 7:39 AM EST) Hemoglobin A1C 6.5(H) <6.5 % LAB CHEMISTRY METHOD 2024 12:35 PM EST [facility] Mean Bld Glu Estim. 140 mg/dL LAB CHEMISTRY METHOD 2024 12:35 PM EST [facility] Blood Venous blood specimen / Unknown Venipuncture / Unknown 2024 7:39 AM EST 2024 7:39 AM EST [facility] LAB BLOOD ORDERABLES Fi nal Result [facility] [address] [place] [address], [place] [phone] * (ABNORMAL) Basic metabolic panel (2024 7:39 AM EST) Sodium 138 133 - 145 mmol/L LAB CHEMISTRY METHOD 2024 10:[address] [facility] Potassium 4.6 3.5 - 5.5 mmol/L LAB CHEMISTRY METHOD 2024 10:[address] [facility] Chloride 106 96 - 110 mmol/L LAB CHEMISTRY METHOD 2024 10:[address] [facility] CO2 30 21 - 32 mmol/L LAB CHEMISTRY METHOD 2024 10:[address] [facility] Anion Gap 2(L) 3 - 11 LAB CHEMISTRY METHOD 2024 10:[address] [facility] Glucose 114(H) 70 - 100 mg/dL LAB CHEMISTRY METHOD 2024 10:[address] [facility] BUN 18 5 - 25 mg/dL LAB CHEMISTRY METHOD 2024 10:[address] [facility] Creatinine 1.33(H) 0.70 - 1.30 mg/dL LAB CHEMISTRY METHOD 2024 10:[address] [facility] eGFR 65 >=60 mL/min/1. 73m2 LAB CHEMISTRY METHOD 2024 10:[address] [facility] Comment:Calculation based on the??Chronic Kidney Disease Epidemiology Collaboration (CKD-EPI) equation refit??without adjustment for race. BUN/Creatinine Ratio 13.5 LAB CHEMISTRY METHOD 2024 10:[address] [facility] Calcium 9.9 8.5 - 10.5 mg/dL LAB CHEMISTRY METHOD 2024 10:[address] [facility] Blood Venous blood specimen / Unknown Venipuncture / Unknown 2024 7:39 AM EST 2024 7:39 AM EST [facility] LAB BLOOD ORDERABLES Fi nal Result [facility] [address] [place] [address], [place] [phone] * Hepatitis C Screening (07/12/2023) Hepatitis C Screening abstracted Historical Provider HEALTH MAINTENANCE Final Result * Colonoscopy (11/28/2021) Colonoscopy no interpretation , abstracted Anatomical Region Laterality Modality Other Historical Provider HEALTH MAINTENANCE Final Result * Urine Albumin Creatinine Ratio (01/28/2019) Urine Albumin Creatinine Ratio abstracted Historical Provider HEALTH MAINTENANCE Final Result from Last 3 Months or Most Recently Relevant to Health Maintenance Insurance [facility] [employer] Care Teams Promotional Marketing Analyst Relationship Specialty Start Date End Date David Clay MD [address] [place] [address] PCP - General Internal Medicine 01/13/15
--- OUTSIDE RECORDS SUMMARY | 2024-08-14 14:46 | XMS_ITS | Encounter Summary ---
Author Organization [facility] Address [address] [place] [address] Care Team Providers Care Sales Ledger Clerk Name Role Phone David [place] MD Primary Care Provider [phone] Encounter Details Date Type Department Care Team Description 09/04/2017 Orders Only Medical Records [address] [place] [phone] Jennie Ortiz PA Social History Tobacco Use Types Packs/Day Years Used Date Smoking Tobacco: Never Smokeless Tobacco: Never Alcohol Use Standard Drinks/Week Comments Yes 0 (1 standard drink = 0.6 oz pur e alcohol) 7 drinks per week Sex Assigned at Date Recorded Not on file documented as of this encounter Plan of Treatment Not on file documented as of this encounter Procedures Procedure Name Priority Date/Time Associated Diagnosis Comments OUTSIDE SLEEP STUDY Routine 08/29/2017 documented in this encounter Results * OUTSIDE SLEEP STUDY (08/29/2017) Jennie [facility] PULMONOLOGY documented in this encounter Visit Diagnoses Not on filedocumented in this encounter Care Teams Sales Ledger Clerk Relationship Specialty Start Date End Date David Clay MD [address] [place] [address] PCP - General Internal Medicine 01/13/15 documented as of this encounter
--- OUTSIDE RECORDS SUMMARY | 2024-08-14 14:46 | XMS_ITS | Clinical Summary ---
Author Organization [facility] Address [address] [place] [address] Care Team Providers Care Cash Control Specialist Name Role Phone David Clay MD Primary Care Provider [phone] Allergies No known active allergies Medications Medication Sig Dispensed Refills Start Date End Date Status ketotifen 0.025 % ophthalmic solution PLACE 1 DROP IN BOTH EYES EVERY 12 HOURS 5 mL 0 07/27/2022 Active magnesium hydroxide (Milk of Magnesia) 400 MG/5ML suspensionIndicatio ns:Constipation, unspecified constipation type Take 5 mL by mouth daily as needed for Constipation for up to 10 days. 40 mL 0 07/11/2023 Active loratadine (CLARITIN) 10 MG tablet Take 1 Tablet by mouth daily. 90 Tablet 1 07/11/2023 Active fluticasone 50 MCG/ACT nasal spray SPRAY 2 SPRAYS INTO EACH NOSTRIL EVERY DAY 16 mL 1 07/11/2023 Active omeprazole (PRILOSEC) 40 MG capsuleIndications: Epigastric pain Take 1 Capsule by mouth daily for 90 days. 90 Capsule 0 07/11/2023 Active Ventolin HFA 108 (90 Base) MCG/ACT Aero Soln INHALE 2 PUFFS INTO THE LUNGS EVERY 4 HOURS NEEDED FOR COUGH OR WHEEZING. 18 g 1 08/16/2023 Active ketoconazole (NIZORAL) 2 % cream APPLY CREAM TO THE AFFECTED AREAS OF THE BOTTOM AND TOP OF FEET TWICE DAILY 60 g 1 08/21/2023 Active albuterol (PROVENTIL) (2.5 MG/3ML) 0.083% nebulizer solution Take 1 Vial by nebulization every 4 hours as needed for Wheezing. 375 mL 1 08/21/2023 Active lisinopril (PRINIVIL,ZESTRIL) 20 MG tablet TAKE 1 TABLET BY MOUTH EVERY DAY 30 Tablet 0 12/17/2023 Active simvastatin (ZOCOR) 80 MG tablet Take 1 Tablet by mouth at bedtime. 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 Testicular cyst 12/20/2016 Mixed hyperlipidemia 06/06/2016 Family hx colonic polyps 09/11/2014 Microscopic hematuria 01/30/2014 Severe obesity 01/27/2014 Overview: BMI 35.86 on 05/05/13 Impaired fasting glucose 01/27/2014 Overview: 2010 and 2011 Essential hypertension, benign 6 Asthma 03/19/2006 Resolved Problems Problem Noted Date Resolved Date Hyperlipidemia 03/19/2006 06/06/2016 Immunizations Name Administration Dates Next Due COVID-19 (Pfizer) 09/08/2020,08/18/2020 Influenza (> 6 Months) 01/30/2014,12/19/2010 Pneumovax Adult(PT Reported) 12/09/2010 TD (STATE SUPPLIED FOR ADULTS AND CHILDREN) 07/2006,07/31/2002 TETANUS/DIPTHERIA (ADULT) 07/31/2002 Tdap 01/30/2014 Family History Medical History Relation Name Comments [...] Assigned at Date Recorded Not on file Last Filed Vital Signs Vital Sign Reading Time Taken Comments Blood Pressure 132/72 07/11/2023 11:03 AM EDT Pulse 89 07/11/2023 11:03 AM EDT Temperature 36.6 ??C (97.9 ??F) 07/11/2023 11:03 AM E DT Respiratory Rate 18 07/11/2023 11:03 AM EDT Oxygen Saturation 96% 01/27/2021 10:53 AM EDT Inhaled Oxygen Concentration - - Weight 108.9 kg (240 lb) 07/11/2023 11:03 AM EDT Height 172.7 cm (5' 8 ) 07/11/2023 11:03 AM EDT Body Mass Index 36.49 07/11/2023 11:03 AM EDT Plan of Treatment Health Maintenance Due Date Last Done Comments SHINGLES VACCINE (1 of 2) 2023 BASELINE HEALTH EXAM 40-64 09/09/202309/08, 12/14/2016, 01/30/2014, Additional history exists Covid-19 Vaccine (3 - 2022-2 4 season) 2023 09/08/2020, 08/18/2020 DTAP/TDAP/TD (2 - Td or Tdap) 01/31/2024, 12/05/2006, 07/31/2002 BMI CHECK/ADVISE 04/02/2024 09/08/2021, , 01/27/2021, Additional history exists DEPRESSION SCREENING/FOLLOWUP 04/02/2024 03/15/2019, 02/14/2019 SOCIAL NEEDS SCREENING 04/02/2024 09/04/2023 INFLUENZA (Season Ended) 2024 01/30/2014, 12/01 COLON CANCER SCREENING 11/28/2026 , 04/08/2015, 04/08/2015 CHOLESTEROL SCREENING 02/21/2028 02/20/2023 , 07/28/2022, 08/12/2021, Additional history exists PNEUMOCOCCAL VACCINE FOR HIG H RISK PATIENTS (#2) 2038 12/09/2010 HEPATITIS C SCREENING Completed 07/12/2023 Care Teams Cash Control Specialist Relationship Specialty Start Date End Date David [place] MD [address] [place] [phone] PCP - General Internal Medicine 01/13/15
--- OUTSIDE RECORDS SUMMARY | 2024-08-14 14:46 | XMS_ITS | Encounter Summary ---
Author Organization [facility] Address [address] [place] [address] Care Team Providers Care Custom Seamstress Name Role Phone Edwardo Allred MD Primary Care Provider Nelia Jose A Lo MD Primary Care Provider Unavail able David Clay MD Primary Care Provider [phone] Encounter Details Date Type Department Care Team Description 12/30/2013 Release of Information Medical Records [address] [place] [id number] Abstract, Provider Social History Tobacco Use Types Packs/Day Years Used Date Smoking Tobacco: Never Alcohol Use Standard Drinks/Week Comments Yes 0 (1 standard drink = 0.6 oz pur e alcohol) occasional Sex Assigned at Date Recorded Not on file documented as of this encounter Plan of Treatment Not on file documented as of this encounter Visit Diagnoses Not on filedocumented in this encounter Care Teams Custom Seamstress Relationship Specialty Start Date End Date Edwardo Allred MD PCP - General Internal Medicine 10/31/13 4 Jose A Vaughn MD PCP - General Internal Medicine 03/04/14 01/12/15 David Clay MD [address] [place] [address] [id number] PCP - General Internal Medicine 01/13/15 documented as of this encounter
--- OUTSIDE RECORDS SUMMARY | 2024-08-14 14:46 | XMS_ITS | Encounter Summary ---
Author Organization [facility] Address [address] [place] [address] Care Team Providers Care Special Education Science Teacher Name Role Phone David Clay MD Primary Care Provider [phone] Encounter Details Date Type Department Care Team Description 12/01/2021 Orders Only Medical Records [address] [place] [address] Shawna Doe MD [address] [place] [address] Social History Tobacco Use Types Packs/Day Years Used Date Smoking Tobacco: Never Smokeless Tobacco: Never Alcohol Use Standard Drinks/Week Comments Yes 0 (1 standard drink = 0.6 oz pur e alcohol) 7 drinks per week Sex Assigned at Date Recorded Not on file documented as of this encounter Progress Notes * Lilliana Doe MD - 12/19/2021 9:35 AM EDT Dear Mr. Kennedy,The polyp(s) that were removed during your colonoscopy were precancerous, but benign. Fortunately, we removed them and therefore, they will not cause any more problems in the future. Based on the number, the size, and the features of the polyp(s) removed, I recommend a follow-up colonoscopy in 5 years. Before, the 5 years are due, we will send you a reminder in the mail asking you to contact our office to have the colonoscopy scheduled. I would like to personally thank you forallowing us to take care of you. Please don't hesitate to call us for any questions or concerns. Regards, Harsh Doe MD Board Certified Gastroenterology and Internal Medicine Transplant Hepatology [facility] documented in this encounter Plan of Treatment Not on file documented as of this encounter Procedures Procedure Name Priority Date/Time Associated Diagnosis Comments OUTSIDE PATHOLOGY Routine 11/30/2021 documented in this encounter Results * OUTSIDE PATHOLOGY (11/30/2021) Shawna Doe MD OUTSIDE LAB documented in this encounter Visit Diagnoses Not on filedocumented in this encounter Care Teams Special Education Science Teacher Relationship Specialty Start Date End Date David Clay MD [address] [place] [id number] PCP - General Internal Medicine 01/13/15 documented as of this encounter
--- OUTSIDE RECORDS SUMMARY | 2024-08-14 14:46 | XMS_ITS | Encounter Summary ---
Author Organization [facility] Address [address] [place] [address] Care Team Providers Care Food Packer Name Role Phone David Clay MD Primary Care Provider [phone] Encounter Details Date Type Department Care Team Description 12/10/2023 Refill Adult Medicine [address] [phone] David Clay MD [address] [place] [address] [id number] Social History Tobacco Use Types Packs/Day Years [...] on filedocumented in this encounter Care Teams Food Packer Relationship Specialty Start Date End Date David Clay MD [address] [place] [phone] PCP - General Internal Medicine 01/13/15 documented as of this encounter
--- OUTSIDE RECORDS SUMMARY | 2024-08-14 14:46 | XMS_ITS | Encounter Summary ---
Author Organization [facility] Address [address] [place] [address] Care Team Providers Care Bar Captain Name Role Phone David Clay MD Primary Care Provider [phone] Encounter Details Date Type Department Care Team Description 01/19/2020 Speech Language Pathology Assistant Report Medical Records [address] [place] [address] Branden Henry MD Social History Tobacco Use Types Packs/Day [...] on filedocumented in this encounter Care Teams Bar Captain Relationship Specialty Start Date End Date David Clay MD [address] [place], [place] [phone] PCP - General Internal Medicine 01/13/15 documented as of this encounter
== END ==
LOC: HO.SL 14:03
PROVIDERS: PCP Internal Medicine; Visit Provider Nurse Practitioner Family
DX: G47.33 Obstructive sleep apnea (adult) (pediatric) (principal); R40.0 Somnolence
CPT/HCPCS: 95806

== ENCOUNTER → 2024-08-14 14:11 | Outpatient (BNV) | payer OTHER, SELFPAY | PROVIDERS: PCP Internal Medicine; Visit Provider Internal Medicine | DX: G47.33 Obstructive sleep apnea (adult) (pediatric) (principal) | CPT/HCPCS: 95806 ==

== ENCOUNTER 2024-08-29 13:51 | Outpatient (AMB) | payer OTHER, SELFPAY ==
--- NOTE | 2024-08-29 13:01 | A.OFFVIS_ITS ---
Vital Signs 08/29/24 13:56 Height 5 ft 8 in Weight 255 lb 8 oz BMI 38.8 BP 132/68 Blood Pressure Location Rt brachial Position Sitting Pulse 64 Pulse Source Pulse Oximeter Pulse Oximetry (%) 96 Oxygen Delivery Method Room Air Intake Visit Reasons: Obstructive sleep apnea/ sleep fu Allergies No Known Allergies Allergy (Unverified 08/29/24 13:59) HPI HPI Obstructive sleep apnea/ sleep fu: Details: Jaycob is a pleasant 49 year old male, never smoker, with underlying ROSETTE, asthma, seasonal allergies, HTN, and HLD. He was referred by PCP for pulmonary evaluation for ROSETTE. He reports prior sleep study in 2018 which revealed ROSETTE, unknown severity. Unfortunately, he was reportedly never was contacted about results until recently therefore was never started on CPAP therapy. He continues with witnessed apneas, paroxsymal nocturnal dyspnea, loud snoring and daytime fatigue. EPWORTH score 13. Today he presents to review home sleep study results. He currently denies any respiratory symptoms. [facility] Medical History High cholesterol HTN (hypertension) Social History (Updated 08/29/24 @ 13:59 by Ni Moore CMA) Patient Tobacco Use Status: Never used Tobacco Review of Systems Const Denies chills, Denies excessive sweating, Denies fever(s), Denies headache(s) and Denies night sweats Eyes Denies dry eyes, Denies irritation and Denies itchy eyes ENT Reports Normal hearing present, Denies headache(s), Denies nasal congestion, Denies nasal discharge, Denies post nasal drip and Denies sore throat Card Denies chest pain, Denies chest pain at rest, Denies chest pain with activity, Denies claudication, Denies leg edema, Denies dyspnea, Denies dyspnea on exertion, Denies orthopnea and Denies paroxysmal nocturnal dyspnea Resp Denies chest congestion, Denies cough, Denies excessive phlegm production, Denies pain on inspiration, Denies pain with cough, Denies dyspnea, Denies dyspnea on exertion, Denies stridor and Denies wheezing Musc Denies myalgias Neuro Reports Normal hearing present and Denies headache(s) Endo Denies excessive sweating Dio/Lymph Denies lymphadenopathy Aller/Immun Denies itchy eyes, Denies seasonal rhinorrhea and Denies wheezing Physical Exam Vital Signs: Last Vital Signs Pulse 64 08/29/24 13:56 BP 132/68 08/29/24 13:56 Pulse Ox 96 08/29/24 13:56 Oxygen Delivery Method Room Air 08/29/24 13:56 BMI result Body Mass Index 38.8 Const General: cooperative, healthy appearing, comfortable, no acute distress, well developed and alert Nutritional Appearance: obese Orientation/consciousness: patient oriented x3 Limitations: no limitations HEENT Head: Yes normal to inspection, Yes normocephalic and Yes atraumatic Ears: hearing grossly normal bilaterally and external ears normal Eyes General: appearance normal, both eyes and all related structures Eyelids: Yes eyelids normal Sclerae: sclerae normal EOM: EOMs intact bilaterally Neck Neck: Yes normal visual inspection and Yes no lymphadenopathy Lymphatic: no lymphadenopathy noted Chest Chest palpation & inspection: normal inspection of the chest Resp Effort & Inspection: normal respiratory effort, able to speak in complete sentences, no audible wheezes, no cough, no stridor, not tachypneic, no tripod positioning and no use of accessory muscles Auscultation: clear to auscultation bilaterally Cardio Jugular venous distension: no JVD Rate: regular rate Skin Other: warm, dry General skin exam: no rashes or lesions noted Neuro General: patient oriented x3 Cranial nerves: Yes Normal hearing present Cognition (Neuro): normal cognition Gait exam (Neuro): Normal gait present Extrem General: Yes normal to inspection, Yes capillary refill normal, Yes no clubbing, cyanosis or edema and Yes no pedal edema Psych Appearance: grossly normal and well kempt Speech and movement: Normal speech and movement present and Clear speech present Affect: normal affect Attitude: cooperative Thought process: Normal thought process present Thought content: Normal thought content present Insight: Good insight present (Psych) Judgement: Good judgement present (Psych) Assessment & Plan Assessment & Plan (1) Severe obstructive sleep apnea: Code(s): G47.33 - Obstructive sleep apnea (adult) (pediatric) Category: Medical (2) Nocturnal hypoxemia: Code(s): G47.34 - Idiopathic sleep related nonobstructive alveolar hypoventilation Category: Medical (3) Asthma: Code(s): J45.909 - Unspecified asthma, uncomplicated Category: Medical Plan Reviewed sleep study results with patient which revealed very severe ROSETTE, an AHI of 97, nocturnal hypoxemia average 90%, lowest 70%, <88% for 103 minutes. Since patient is quite symptomatic, will start CPAP therapy. Will send in prescription for APAP mode and pressure settings of 6-20 cm with close monitoring for compliance and benefits. Sleep hygiene education reviewed. Will also send for in lab titration to ensure optimal pressures and resolution of apneas/hypoxia. He is aware if there are any issues with the mask or CPAP machine, he will call the [employer] company. On exam patient with abnormal heart rhythm, denies chest pain, dizziness, palpitations, lightheadedness or dyspnea. Discussed symptoms that warrant emergent evaluation. All questions were answered and patient is in agreement of plan. Will follow up in 10-12 weeks or sooner if needed. Orders: Orders ECG 12 lead EKG Today I49.9 - Cardiac arrhythmia, unspecified RT PSG in-lab sleep titration Today G47.33 - Obstructive sleep apnea (adult) (pediatric), G47.34 - Idiopathic sleep related nonobstructive alveolar hypoventilation Coding Level of Care Code Est Pt Level 4 (63545) Diagnoses Severe obstructive sleep apnea G47.33 Nocturnal hypoxemia G47.34 Asthma J45.909
[2024-08-29 13:56] VITALS: BP 132/68; PULSE 64; O2SAT 96; BMI 38.8
--- OUTSIDE RECORDS SUMMARY | 2024-08-29 13:58 | XMS_ITS | Clinical Summary ---
Author Organization [facility] [address] [facility] Address [address] [place] [phone] Phone Care Team Providers Care Networker Name Role Phone David Clay MD Primary Care Provider [phone] Allergies No known active allergies Medications ketotifen [...] complication, without long-term current use of insulin [place] [place] [facility] [place] 05/19/2024 Helicobacter pylori gastritis 07/12/2023 Hepatic steatosis 07/11/2023 Seasonal allergies 07/11/2023 Bilateral inguinal hernia without obstruction or gangrene 01/22/2019 Prediabetes 10/14/2018 Obstructive sleep apnea 09/04/2017 Overview (02/19/2024): [facility] Home Polysomnogram: Date 08/29/2017; AHI 33, [...] Overview (02/19/2024): 2010 and 2011 Severe obesity [place] [place] [facility] [place]28[place] 2013 Overview (02/19/2024): BMI 35.86 [...] EDT Office Visit Adult Medicine [facility] [address] [place] [phone] David Clay MD [address] [place] [phone] Health Maintenance Due Date Last Done Comments [...] LAB CHEMISTRY METHOD 2024 10:23 AM EST [facility] Triglycerides 163(H) 0 - 150 mg/dL LAB CHEMISTRY METHOD 2024 10:23 AM EST [facility] HDL 49 >=40 mg/dL LAB CHEMISTRY METHOD 2024 10:23 AM EST [facility] LDL Calculated 101(H) 0 - 100 mg/dL LAB CHEMISTRY METHOD 2024 10:23 AM [facility] VLDL Cholesterol Marlon 32.6 mg/dL LAB CHEMISTRY METHOD 2024 10:23 AM [facility] Non HDL Chol. (LDL+VLDL) 134 <145 mg/dL LAB CHEMISTRY METHOD 2024 10:23 AM EST [facility] Chol/HDL Ratio 3.7 0.0 - 4.4 LAB CHEMISTRY METHOD 2024 10:23 AM [facility] Blood Venous blood specimen / Unknown Venipuncture / Unknown 2024 7:39 AM EST 2024 7:39 AM EST [facility] LAB BLOOD ORDERABLES Fi nal Result Performing Organization Address City/[facility]/ZIP Co de Phone Number [facility] [address] [place] [address], * (ABNORMAL) Hemoglobin A1c (2024 7:39 AM EST) Hemoglobin A1C 6.5(H) <6.5 % LAB CHEMISTRY METHOD 2024 12:35 PM EST [facility] Mean Bld Glu Estim. 140 mg/dL LAB CHEMISTRY METHOD 2024 12:35 PM EST [facility] Blood Venous blood specimen / Unknown Venipuncture / Unknown 2024 7:39 AM EST 2024 7:39 AM EST [facility] LAB BLOOD ORDERABLES Fi nal Result [facility] [address] [place] [address], [place] [phone] * (ABNORMAL) Basic metabolic panel (2024 7:39 AM EST) Sodium 138 133 - 145 mmol/L LAB CHEMISTRY METHOD 2024 10:32 AM [facility] Potassium 4.6 3.5 - 5.5 mmol/L LAB CHEMISTRY METHOD 2024 10:32 AM [facility] Chloride 106 96 - 110 mmol/L LAB CHEMISTRY METHOD 2024 10:32 AM [facility] CO2 30 21 - 32 mmol/L LAB CHEMISTRY METHOD 2024 10:32 AM [facility] Anion Gap 2(L) 3 - 11 LAB CHEMISTRY METHOD 2024 10:32 AM [facility] Glucose 114(H) 70 - 100 mg/dL LAB CHEMISTRY METHOD 2024 10:32 AM [facility] BUN 18 5 - 25 mg/dL LAB CHEMISTRY METHOD 2024 10:32 AM [facility] Creatinine 1.33(H) 0.70 - 1.30 mg/dL LAB CHEMISTRY METHOD 2024 10:32 AM [facility] eGFR 65 >=60 mL/min/1. 73m2 LAB CHEMISTRY METHOD 2024 10:32 AM [facility] Comment:Calculation based on the??Chronic Kidney Disease Epidemiology Collaboration (CKD-EPI) equation refit??without adjustment for race. BUN/Creatinine Ratio 13.5 LAB CHEMISTRY METHOD 2024 10:32 AM [facility] Calcium 9.9 8.5 - 10.5 mg/dL LAB CHEMISTRY METHOD 2024 10:32 AM [facility] Blood Venous blood specimen / Unknown Venipuncture / Unknown 2024 7:39 AM EST 2024 7:39 AM EST [facility] LAB BLOOD ORDERABLES Fi nal Result [facility] [address] [place] [address], [place] [phone] * Hepatitis C Screening (07/12/2023) Hepatitis C Screening abstracted Historical Provider HEALTH MAINTENANCE Final Result * Colonoscopy (11/28/2021) Colonoscopy no interpretation , abstracted Anatomical Region Laterality Modality Other Historical Provider HEALTH MAINTENANCE Final Result * Urine Albumin Creatinine Ratio (01/28/2019) Urine Albumin Creatinine Ratio abstracted Historical Provider HEALTH MAINTENANCE Final Result from Last 3 Months or Most Recently Relevant to Health Maintenance Insurance [facility] [address] Care Teams Networker Relationship Specialty Start Date End Date David Clay MD [address] [place] [phone] PCP - General Internal Medicine 01/13/15
== END 2024-08-29 14:23 | disposition home or self-care (01) ==
LOC: HO.HPSW 13:51
PROVIDERS: PCP Internal Medicine; Visit Provider Nurse Practitioner Family
DX: G47.33 Obstructive sleep apnea (adult) (pediatric) (principal); G47.34 Idiopathic sleep related nonobstructive alveolar hypoventilation; J45.909 Unspecified asthma, uncomplicated
CPT/HCPCS: 99214

== ENCOUNTER → 2024-08-29 13:51 | Outpatient (BNVA) | payer OTHER, SELFPAY | PROVIDERS: PCP Internal Medicine; Visit Provider Nurse Practitioner Family | DX: G47.33 Obstructive sleep apnea (adult) (pediatric) (principal); G47.34 Idiopathic sleep related nonobstructive alveolar hypoventilation; J45.909 Unspecified asthma, uncomplicated; I49.9 Cardiac arrhythmia, unspecified; Z91.09 Other allergy status, other than to drugs and biological substances; Z99.89 Dependence on other enabling machines and devices | CPT/HCPCS: 99212 ==

== ENCOUNTER → 2024-09-01 11:30 | Outpatient (REF) | payer OTHER, SELFPAY ==
--- NOTE | 2024-09-01 11:49 | ECG_ITS ---
Test Reason : CARDIAC ARRYTHMIA Blood Pressure : */* mmHG Vent. Rate : 92 BPM Atrial Rate : 92 BPM P-R Int : 132 ms QRS Dur : 78 ms QT Int : 370 ms P-R-T Axes : 66 -14 -24 degrees QTcB Int : 457 ms Sinus rhythm with frequent Premature ventricular complexes Minimal voltage criteria for LVH, may be normal variant ( R in aVL ) Abnormal ECG When compared with ECG of 23-Jul-2007 08:28, Premature ventricular complexes are now Present Referred By: Fernanda Wing Electronically Signed By: ARACELI TOVAR
--- OUTSIDE RECORDS SUMMARY | 2024-09-01 12:48 | XMS_ITS | Encounter Summary ---
Author Organization [facility] Address [address] [place] [address] Care Team Providers Care Charge Entry Name Role Phone David Clay MD Primary Care Provider [phone] Encounter Details Date Type Department Care Team Description 04/27/2017 Telephone Adult Medicine [address] [phone] David Clay MD [address] [place] [address] [phone] Social History Tobacco Use Types Packs/Day Years [...] on filedocumented in this encounter Care Teams Charge Entry Relationship Specialty Start Date End Date David Clay MD [address] [place] [phone] PCP - General Internal Medicine 01/13/15 documented as of this encounter
== END ==
LOC: HO.CARD 11:30
PROVIDERS: PCP Internal Medicine; Visit Provider Nurse Practitioner Family
DX: I49.9 Cardiac arrhythmia, unspecified (principal)
CPT/HCPCS: 93005

== ENCOUNTER → 2024-09-01 11:49 | Outpatient (BNV) | payer OTHER, SELFPAY | PROVIDERS: PCP Internal Medicine; Visit Provider Internal Medicine | DX: I49.3 Ventricular premature depolarization (principal) | CPT/HCPCS: 93010 ==

== ENCOUNTER 2024-12-17 10:58 | Outpatient (AMB) | payer OTHER, SELFPAY ==
[2024-12-17 11:20] VITALS: BP 146/80; PULSE 60; O2SAT 98; BMI 37.6
--- NOTE | 2024-12-17 11:20 | A.OFFVIS_ITS ---
Vital Signs 12/17/24 11:20 Height 5 ft 8 in Weight 247 lb 4 oz BMI 37.6 BP 146/80 H Blood Pressure Location Rt brachial Position Sitting Pulse 60 Pulse Source Pulse Oximeter Pulse Oximetry (%) 98 Oxygen Delivery Method Room Air Intake Visit Reasons: Obstructive sleep apnea Allergies No Known Allergies Allergy (Unverified 12/17/24 11:29) HPI HPI Obstructive sleep apnea: Details: Jaycob is a pleasant 49 year old male, never smoker, with underlying severe ROSETTE, asthma, seasonal allergies, HTN, and HLD. He was initially referred by PCP for pulmonary evaluation for ROSETTE. He reports prior sleep study in 2018 which revealed ROSETTE, unknown severity. Unfortunately, he was reportedly never was c ontacted about results until recently therefore was never started on CPAP therapy. At the last visit he was sent for home sleep study due to persistent witnessed apneas, paroxsymal nocturnal dyspnea, loud snoring and daytime fatigue. Home sleep study revealed very severe ROSETTE, an AHI of 97, nocturnal hypoxemia average 90%, lowest 70%, <88% for 103 minutes. Order for CPAP therapy in APAP mode with settings 09/02/2019 were sent to [facility]. He was also sent for in-lab titration study to ensure optimal pressures unfortunately he was out of town and missed this appointment. He was given the phone number for centralized scheduling to reschedule. Today he presents to review compliance report. At this time denies any respiratory symptoms. [facility] Medical History High cholesterol HTN (hypertension) Social History Patient Tobacco Use Status: Never used Tobacco Review of Systems Const Denies chills, Denies excessive sweating, Denies fever(s), Denies headache(s) and Denies night sweats Eyes Denies dry eyes, Denies irritation and Denies itchy eyes ENT Reports Normal hearing present, Denies headache(s), Denies nasal congestion, Denies nasal discharge, Denies post nasal drip and Denies sore throat Card Denies chest pain, Denies chest pain at rest, Denies chest pain with activity, Denies claudication, Denies leg edema, Denies dyspnea, Denies dyspnea on exertion, Denies orthopnea and Denies paroxysmal nocturnal dyspnea Resp Denies chest congestion, Denies cough, Denies excessive phlegm production, Denies pain on inspiration, Denies pain with cough, Denies dyspnea, Denies dyspnea on exertion, Denies stridor and Denies wheezing Musc Denies myalgias Neuro Reports Normal hearing present and Denies headache(s) Endo Denies excessive sweating Dio/Lymph Denies lymphadenopathy Aller/Immun Denies itchy eyes, Denies seasonal rhinorrhea and Denies wheezing Physical Exam Vital Signs: Last Vital Signs Pulse 60 12/17/24 11:20 BP 146/80 H 12/17/24 11:20 Pulse Ox 98 12/17/24 11:20 Oxygen Delivery Method Room Air 12/17/24 11:20 BMI result Body Mass Index 37.6 Const General: cooperative, healthy appearing, comfortable, no acute distress, well developed and alert Nutritional Appearance: obese Orientation/consciousness: patient oriented x3 Limitations: no limitations HEENT Head: Yes normal to inspection, Yes normocephalic and Yes atraumatic Ears: hearing grossly normal bilaterally and external ears normal Eyes General: appearance normal, both eyes and all related structures Eyelids: Yes eyelids normal Sclerae: sclerae normal EOM: EOMs intact bilaterally Neck Neck: Yes normal visual inspection and Yes no lymphadenopathy Lymphatic: no lymphadenopathy noted Chest Chest palpation & inspection: normal inspection of the chest Resp Effort & Inspection: normal respiratory effort, able to speak in complete sentences, no audible wheezes, no cough, no stridor, not tachypneic, no tripod positioning and no use of accessory muscles Auscultation: clear to auscultation bilaterally Cardio Jugular venous distension: no JVD Rate: regular rate Rhythm: regular rhythm Skin Other: warm, dry General skin exam: no rashes or lesions noted Neuro General: patient oriented x3 Cranial nerves: Yes Normal hearing present Cognition (Neuro): normal cognition Gait exam (Neuro): Normal gait present Extrem General: Yes normal to inspection, Yes capillary refill normal, Yes no clubbing, cyanosis or edema and Yes no pedal edema Psych Appearance: grossly normal and well kempt Speech and movement: Normal speech and movement present and Clear speech present Affect: normal affect Attitude: cooperative Thought process: Normal thought process present Thought content: Normal thought content present Insight: Good insight present (Psych) Judgement: Good judgement present (Psych) Assessment & Plan Assessment & Plan (1) Severe obstructive sleep apnea: Code(s): G47.33 - Obstructive sleep apnea (adult) (pediatric) Category: Medical (2) Nocturnal hypoxemia: Code(s): G47.34 - Idiopathic sleep related nonobstructive alveolar hypoventilation Category: Medical (3) Asthma: Code(s): J45.909 - Unspecified asthma, uncomplicated Category: Medical Plan Reviewed reviewed compliance report which revealed usage greater than 4 hours for 43% of the time, AHI 1.2 with minimal leaking. He is attempting to use more consistently however has a toddler at home which can disrupt sleep. He also notes some issues with mask leaking encouraged to tighten mask versus reach out to [employer] to obtain different masks the trial, which he was agreeable to. He was given the phone number for central scheduling to schedule in lab sleep titration study, which was previously scheduled unfortunately patient missed this appointment. At the last visit, found to have abnormal heart rhythm, sent for EKG which revealed multiple PVCs. He currently denies any palpitations, dizziness or chest pain. He was referred to Cardiology and has upcoming appointment next month. All questions were answered and patient is in agreement of plan. Will follow up in 10-12 weeks or sooner if needed. Coding Level of Care Code Est Pt Level 4 (17213) Diagnoses Severe obstructive sleep apnea G47.33 Nocturnal hypoxemia G47.34 Asthma J45.909
--- OUTSIDE RECORDS SUMMARY | 2024-12-17 13:58 | XMS_ITS | Clinical Summary ---
Author Organization [facility] Address [address] [place] [phone] Phone Care Team Providers Care Engine Lathe Set Up Operator Name Role Phone David Clay MD Primary Care Provider [phone] Allergies No known active allergies Medications ketotifen fumarate (ZADITOR) 0.035 % ophthalmic solution PLACE 1 DROP IN BOTH EYES EVERY 12 HOURS 07/28/19 23 Active ketoconazole (NIZORAL) 2 % cream APPLY CREAM TO THE AFFECTED AREAS OF THE BOTTOM AND TOP OF FEET TWICE DAILY 08/21/19 24 Active simvastatin (ZOCOR) 80 mg tablet Take 1 tablet (80 mg total) by mouth at bedtime. 90 tablet 1 05/07/19 25 Active loratadine (CLARITIN) 10 mg tablet TAKE 1 TABLET BY MOUTH 1 TIME EACH DAY. 90 tablet 11/19/19 25 Active lisinopriL (PRINIVIL,ZES TRIL) 20 mg tablet TAKE 1 TABLET (20 MG TOTAL) BY MOUTH ONE TIME EACH DAY 90 tablet 11/19/19 25 Active albuterol 2.5 mg /3 mL (0.083 %) nebulizer solution Take 3 mL (2.5 mg total) by nebulization 4 (four) times a day if needed for wheezing or shortness of breath. 75 mL 12/03/19 25 Active albuterol HFA (Ventolin HFA) 90 mcg/actuation inhaler Inhale 2 puffs by mouth every 4 (four) hours if needed for wheezing or shortness of breath. 6.7 g 1 12/03/19 25 Active fluticasone propionate (FLONASE) 50 mcg/actuation nasal spray Administer 2 sprays into each nostril 1 (one) time each day. 16 g 1 12/03/19 25 025 Active fluticasone propionate (FLONASE) 50 mcg/actuation nasal spray Administer 2 sprays into each nostril 1 (one) time each day. 07/11/19 24 025 Discontinued(R eorder) loratadine (CLARITIN) 10 mg tablet Take 1 tablet (10 mg total) by mouth 1 (one) time each day. 90 tablet 04/14/19 25 025 Discontinued lisinopriL (PRINIVIL,ZES TRIL) 20 mg tablet Take 1 tablet (20 mg total) by mouth 1 (one) time each day. 90 tablet 04/14/19 025 Discontinued albuterol HFA (Ventolin HFA) 90 mcg/actuation inhaler Inhale 2 puffs by mouth every 4 (four) hours if needed for wheezing or shortness of breath. 6.7 g 1 05/07/19 25 025 Discontinued(R eorder) albuterol 2.5 mg /3 mL (0.083 %) nebulizer solution Take 3 mL (2.5 mg total) by nebulization 4 (four) times a day if needed for wheezing or shortness of breath. 75 mL 05/07/19 025 Discontinued(R eorder) Active Problems Problem Noted Date Diagnosed Date Type 2 diabetes mellitus wit hout complication, without long-term current use of insulin ([facility] V24, [facility] V28) 05/19/2024 Helicobacter pylori gastritis 07/12/2023 Hepatic steatosis 07/11/2023 Seasonal allergies 07/11/2023 Bilateral inguinal hernia without obstruction or gangrene 01/22/2019 Prediabetes 10/14/2018 Obstructive sleep apnea 09/04/2017 Overview (02/19/2024): [facility] Home Polysomnogram: Date 08/29/2017; AHI [...] Overview (02/19/2024): 2010 and 2011 Severe obesity ([facility] V24, [facility] V28) 2013 Overview (02/19/2024): BMI 35.86 on 05/05/13 Asthma 03/19/2006 Essential hypertension, benign 03/19/2006 Encounters Date Type Department Care Team Description 12/02/2024 3:00 PM EDT Office Visit Adult Medicine [address] [phone] 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, 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 Mild intermittent asthma without complication (Primary Dx); Essential hypertension, benign; Mixed hyperlipidemia; Prediabetes; Obstructive sleep apnea; Type 2 diabetes mellitus without complication, without long-term current use of insulin ([facility] V24, [facility] V28) from Last 3 Months Immunizations Name Administration [...] Sign Reading Time Taken Comments Blood Pressure 117/86 12/02/2024 2:50 PM EDT Pulse 92 12/02/2024 2:50 PM EDT Temperature 35.9 C (96.7 F) 12/02/2024 2:50 PM EDT Respiratory Rate 18 12/02/2024 2:50 PM EDT Oxygen Saturation 96% 12/02/2024 2:50 PM EDT Inhaled Oxygen Concentration - - Weight 114 kg (250 lb 14.4 oz) 12/02/2024 2:50 P M EDT Height 172.7 cm (5' 7.99 ) 12/02/2024 2:50 PM ED T Body Mass Index 38.16 12/02/2024 2:50 PM EDT Plan of Treatment Upcoming Encounters Date Type Department Care Team (Late st Contact Info) Description 06/15/2025 3:30 PM EDT Office Visit Adult Medicine [address] [phone] David Clay MD [address] [place] [phone] Health Maintenance Due Date Last Done Comments Diabetes: Annual Foot Exam 1983 Diabetes: Annual Retina Eye Exam 1983 Hepatitis B Vaccines (1 of 3 - 19+ 3-dose series) 1992 Pneumococcal Vaccine: 50+ Years (1 of 2 - PCV) 1992 12/09/2010 HIV Screening 03/11/2022 Social Influencers of Health Screening 03/11/2022 Zoster Vaccines (1 of 2) 2023 DTaP,Tdap,and Td Vaccines (5 - Td or Tdap) 01/31/2024 01/30/2014, 12/05/2006, 07/31/2002, Additional history exists Depression Screening 04/02/2024 Diabetes: Annual Urine Albumin-Creatinine Ratio (uACR) 05/20/2024 01/28/2019 COVID-19 Vaccine ( season) 2024 09/08/2020, 08/18/2020 Influenza Vaccine (#1) 2024 01/30/2014, 2010 Diabetes: Annual GFR (Glomerular Filtration Rate) 2025 2024, 07/12/2023 Hypertension/CHF/CAD Annual BMP Blood Test 2025 2024, 07/12/2023 Diabetes: Blood Sugar Control Test (HGBA1C) 06/01/2025 12/02/2024, 2024, 07/12/2023 Colorectal Cancer Screening: Colonoscopy 11/28/2026 [...] Procedure Name Priority Date/Time Associated Diagnosis Comments HEMOGLOBIN A1C Routine 12/02/2024 3:34 PM EDT Prediabetes BASIC METABOLIC PANEL Routine 2024 7:39 AM EST Essential hypertension, benign LIPID PANEL WITH REFLEX TO DIRECT LDL Routine 2024 7:39 AM EST Mixed hyperlipidemia HEPATITIS C SCREENING Routine 07/12/2023 COLONOSCOPY Routine 11/28/2021 URINE ALBUMIN CREATININE RATIO Routine 01/28/2019 from Last 3 Months or Most Recently Relevant to Health Maintenance Results * (ABNORMAL) Hemoglobin A1c (12/02/2024 3:34 PM EDT) Hemoglobin A1C 6.5(H) <6.5 % LAB CHEMISTRY METHOD 12/02/2024 10:20 PM EDT [facility] Mean Bld Glu Estim. 140 mg/dL LAB CHEMISTRY METHOD 12/02/2024 10:20 PM EDT [facility] Blood Venous blood specimen / Unknown Venipuncture / Unknown 12/02/2024 3:34 PM EDT 12/02/2024 3:34 PM EDT us 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 LAB BLOOD ORDERABLES Final Re sult [facility] [address] [place] [address], [place] [phone] * (ABNORMAL) Lipid panel with reflex to direct LDL (2024 7:39 AM EST) Cholesterol 183 0 - 200 mg/dL LAB CHEMISTRY METHOD 2024 10:23 AM EST [facility] Triglycerides 163(H) 0 - 150 mg/dL LAB CHEMISTRY METHOD 2024 10:23 AM EST [facility] HDL 49 >=40 mg/dL LAB CHEMISTRY METHOD 2024 10:23 AM [facility] LDL Calculated 101(H) 0 - 100 mg/dL LAB CHEMISTRY METHOD 2024 10:23 AM [facility] VLDL Cholesterol Marlon 32.6 mg/dL LAB CHEMISTRY METHOD 2024 10:23 AM [facility] Non HDL Chol. (LDL+VLDL) 134 <145 mg/dL LAB CHEMISTRY METHOD 2024 10:23 AM [facility] Chol/HDL Ratio 3.7 0.0 - 4.4 LAB CHEMISTRY METHOD 2024 10:23 AM [facility] Blood Venous blood specimen / Unknown Venipuncture / Unknown 2024 7:39 AM EST 2024 7:39 AM EST Fadumo MENJIVAR LAB BLOOD ORDERABLES Fi nal Result [facility] [address] [place] [address], * (ABNORMAL) Basic metabolic panel (2024 7:39 AM EST) Pathologist [facility] Sodium 138 133 - 145 mmol/L LAB CHEMISTRY METHOD 2024 10:32 AM [facility] Potassium 4.6 3.5 - 5.5 mmol/L LAB CHEMISTRY METHOD 2024 10:32 AM [facility] Chloride 106 96 - 110 mmol/L LAB CHEMISTRY METHOD 2024 10:32 AM [facility] CO2 30 21 - 32 mmol/L LAB CHEMISTRY METHOD 2024 10:32 AM [facility] Anion Gap 2(L) 3 - 11 LAB CHEMISTRY METHOD 2024 10:32 AM [facility] Glucose 114(H) 70 - 100 mg/dL LAB CHEMISTRY METHOD 2024 10:32 AM [facility] BUN 18 5 - 25 mg/dL LAB CHEMISTRY METHOD 2024 10:32 AM [facility] Creatinine 1.33(H) 0.70 - 1.30 mg/dL LAB CHEMISTRY METHOD 2024 10:32 AM [facility] eGFR 65 >=60 mL/min/1. 73m2 LAB CHEMISTRY METHOD 2024 10:32 AM [facility] Comment:Calculation based on the Chronic Kidney Disease Epidemiology Collaboration (CKD-EPI) equation refit without adjustment for race. BUN/Creatinine Ratio 13.5 LAB CHEMISTRY METHOD 2024 10:32 AM [facility] Calcium 9.9 8.5 - 10.5 mg/dL LAB CHEMISTRY METHOD 2024 10:32 AM [facility] Blood Venous blood specimen / Unknown Venipuncture / Unknown 2024 7:39 AM EST 2024 7:39 AM EST Fadumo MENJIVAR LAB BLOOD ORDERABLES Fi nal Result [facility] [address] [place] [address], * Hepatitis C Screening (07/12/2023) Pathologist [facility] Hepatitis C Screening abstracted Historical Provider HEALTH MAINTENANCE Final Result * Colonoscopy (11/28/2021) Colonoscopy no interpretation , abstracted Anatomical Region Laterality Modality Other Historical Provider HEALTH MAINTENANCE Final Result * Urine Albumin Creatinine Ratio (01/28/2019) Urine Albumin Creatinine Ratio abstracted Historical Provider HEALTH MAINTENANCE Final Result from Last 3 Months or Most Recently Relevant to Health Maintenance Insurance [facility] [phone] Care Teams Engine Lathe Set Up Operator Relationship Specialty Start Date End Date David Clay MD PCP - General Internal Medicine 01/13/15
--- OUTSIDE RECORDS SUMMARY | 2024-12-17 13:58 | XMS_ITS ---
Author Name [facility] Organization Unknown Care Team Organization Name Specialty Phone Email Start Date End Da te [facility] FABI OLIVARES Primary Care 02/07/2022
== END 2024-12-17 11:43 | disposition home or self-care (01) ==
LOC: HO.HPSW 10:59
PROVIDERS: PCP Internal Medicine; Visit Provider Nurse Practitioner Family
DX: G47.33 Obstructive sleep apnea (adult) (pediatric) (principal); G47.34 Idiopathic sleep related nonobstructive alveolar hypoventilation; J45.909 Unspecified asthma, uncomplicated
CPT/HCPCS: 99214

== ENCOUNTER → 2024-12-17 10:58 | Outpatient (BNVA) | payer OTHER, SELFPAY | PROVIDERS: PCP Internal Medicine; Visit Provider Nurse Practitioner Family | DX: G47.33 Obstructive sleep apnea (adult) (pediatric) (principal); G47.34 Idiopathic sleep related nonobstructive alveolar hypoventilation; J45.909 Unspecified asthma, uncomplicated | CPT/HCPCS: 99212 ==